=== PATIENT | female | born 1995 | race American Indian/Alaskan Native ===

== ENCOUNTER 2018-01-09 00:43 | Emergency (ER) | payer MEDICAID ==
[2018-01-09 00:52] VITALS: BP 111/69; PULSE 96; TEMP 99; O2SAT 98
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
[2018-01-09 02:07] VITALS: RESP 20
== END 2018-01-09 02:06 | disposition home or self-care (01) ==
LOC: C.ER 00:43
DX: S00.83XA Contusion of other part of head, initial encounter (principal); S39.012A Strain of muscle, fascia and tendon of lower back, initial encounter; Y04.0XXA Assault by unarmed brawl or fight, initial encounter; Y92.89 Other specified places as the place of occurrence of the external cause

== ENCOUNTER 2018-03-10 22:34 | Emergency (ER) | payer MEDICAID ==
[2018-03-10 23:05] VITALS: BP 133/82
[2018-03-10 23:44] VITALS: RESP 18
[2018-03-11 00:29] VITALS: PULSE 101; TEMP 101.4; O2SAT 97
--- NOTE | 2018-03-11 00:41 | C.PDOC ---
History Of Present Illness 22 year old female presents to the ER with a complaint of a fever, sore throat, headache, and body aches, associated with chest congestion and a dry cough. Denies vomiting, diarrhea, sick contact, or recent travel. Time Seen by Provider: 03/10/18 23:11 Chief Complaint (Nursing): Fever History Per: Patient History/Exam Limitations: no limitations Onset/Duration Of Symptoms: Hrs Current Symptoms Are (Timing): Still Present Location Of Pain: None Sick Contacts (Context): None Associated Symptoms: Fever, Sore Throat, Cough, Myalgias, Other (Headache, Chest congestion). denies: Vomiting, Diarrhea Ear Symptoms: Bilateral: None Recent travel outside of the [place]: No Past Medical History Reviewed: Historical Data, Nursing Documentation, Vital Signs Vital Signs: Last Vital Signs Temp 101.4 F H 03/11/18 00:29 Pulse 101 H 03/11/18 00:29 Resp 18 03/11/18 00:29 BP 133/82 03/10/18 23:02 Pulse Ox 97 03/11/18 00:43 - Medical History PMH: Asthma Family History: States: Unknown Family Hx - Social History Hx Tobacco Use: No Hx Alcohol Use: No Hx Substance Use: No - Immunization History Hx Tetanus Toxoid Vaccination: No Hx Influenza Vaccination: No Hx Pneumococcal Vaccination: No Review Of Systems Constitutional: Positive for: Fever ENT: Positive for: Throat Pain Respiratory: Positive for: Cough, Other (Chest congestion). Negative for: Sputum Gastrointestinal: Negative for: Vomiting, Diarrhea Musculoskeletal: Positive for: Other (Body aches) Neurological: Positive for: Headache Physical Exam - Physical Exam Appears: Non-toxic Skin: Normal Color, Warm, Dry Head: Atraumatic, Normacephalic Eye(s): bilateral: Normal Inspection Ear(s): Bilateral: Normal Nose: Normal Oral Mucosa: Moist Throat: Normal, No Erythema, No Exudate Neck: Normal, Supple Chest: Symmetrical, No Tenderness Cardiovascular: Rhythm Regular Respiratory: Normal Breath Sounds, No Rales, No Rhonchi, No Wheezing Neurological/Psych: Oriented x3, Normal Speech ED Course And Treatment O2 Sat by Pulse Oximetry: 97 (Room air) Pulse Ox Interpretation: Normal Progress Note: Tylenol administered for fever. On reevaluation, patient's temperature has improved, she resting comfortably in the ER in no acute distress , tolerating PO, vitals are stable, will discharge home with Rx and instructions to follow up with PMD or return if symptoms worsen. Disposition Counseled Patient/Family Regarding: Diagnosis, Need For Followup - Disposition Referrals: Kiran Hawkins MD [Medical Doctor] - Disposition: HOME/ ROUTINE Disposition Time: 00:39 Condition: STABLE Additional Instructions: Increase PO fluids Bed rest Take meds as directed Return to ER if worse Prescriptions: Benzonatate [Tessalon Perles] 100 mg PO TID #14 sgl Cetirizine HCl [Zyrtec] 10 mg PO DAILY #14 capsule Ibuprofen [Motrin] 600 mg PO Q6H #24 tab Instructions: Viral Upper Respiratory Infection, Adult (DC) Forms: [employer] (Georgian), Work Excuse - Clinical Impression Clinical Impression: Upper respiratory infection - PA / SOLO MUSICIAN / Resident Statement MD/DO has reviewed & agrees with the documentation as recorded. - Scribe Statement The provider has reviewed the documentation as recorded by the Scribe Vikram Rodriguez All medical record entries made by the Scribe were at my direction and personally dictated by me. I have reviewed the chart and agree that the record accurately reflects my personal performance of the history, physical exam, medical decision making, and the department course for this patient. I have also personally directed, reviewed, and agree with the discharge instructions and disposition.
== END 2018-03-11 00:46 | disposition home or self-care (01) ==
LOC: C.ER 22:34
DX: J06.9 Acute upper respiratory infection, unspecified (principal)

== ENCOUNTER 2018-03-11 11:11 | Emergency (ER) | payer MEDICAID ==
[2018-03-11] MEDS ORDERED: Sodium Chloride 0.9% 1,000 ML IV ONE (11:44)
[2018-03-11] MEDS ORDERED: Sodium Chloride 0.9% 1,000 ML ONE (12:19)
--- NOTE | 2018-03-11 12:32 | C.PDOC ---
History Of Present Illness The patient is a 22 year old female who was evaluated in this ED yesterday for upper respiratory infection symptoms. Patient was discharged with prescriptions for Tessalon Perles, Zyrtec, and Motrin. Following her discharge, patient went home and had two episodes of vomiting, which has prompted this ED visit. Patient was noted to have temperature of 102 in the ED. Patient denies fever, chills, abdominal pain. Time Seen by Provider: 03/11/18 11:29 Chief Complaint (Nursing): Abdominal Pain History Per: Patient History/Exam Limitations: no limitations Onset/Duration Of Symptoms: Hrs Current Symptoms Are (Timing): Still Present Associated Symptoms: Vomiting. denies: Fever, Chills Additional History Per: Patient Past Medical History Reviewed: Historical Data, Nursing Documentation, Vital Signs Vital Signs: Last Vital Signs Temp 99.6 F 03/11/18 14:24 Pulse 93 H 03/11/18 14:24 Resp 20 03/11/18 14:24 BP 101/63 03/11/18 14:24 Pulse Ox 99 03/11/18 14:58 - Medical History PMH: Asthma Surgical History: No Surg Hx Family History: States: Unknown Family Hx - Social History Hx Tobacco Use: No Hx Alcohol Use: No Hx Substance Use: No - Immunization History Hx Tetanus Toxoid Vaccination: No Hx Influenza Vaccination: No Hx Pneumococcal Vaccination: No Review Of Systems Constitutional: Negative for: Fever, Chills Gastrointestinal: Positive for: Vomiting. Negative for: Abdominal Pain Physical Exam - Physical Exam Appears: Non-toxic, No Acute Distress Skin: Normal Color, Warm Head: Atraumatic, Normacephalic Oral Mucosa: Moist Neck: Supple Chest: Symmetrical, No Deformity, No Tenderness Cardiovascular: Rhythm Regular, No Murmur Respiratory: Normal Breath Sounds, No Rales, No Rhonchi, No Wheezing Gastrointestinal/Abdominal: Soft, No Tenderness, No Guarding, No Rebound Extremity: Normal ROM, Capillary Refill (less than 2 seconds ) Neurological/Psych: Oriented x3, Normal Speech, Normal Cognition ED Course And Treatment - Laboratory Results Result Diagrams: 03/11/18 12:31 03/11/18 12:31 Lab Interpretation: No Acute Changes O2 Sat by Pulse Oximetry: 99 (on RA) Pulse Ox Interpretation: Normal - Other Rad CXR X-Ray: Interpreted by Me, Viewed By Me Interpretation: HISTORY: Cough. COMPARISON: No prior. TECHNIQUE: Chest PA and lateral. FINDINGS: LUNGS: No active pulmonary disease. PLEURA: No significant pleural effusion identified. No pneumothorax apparent. CARDIOVASCULAR: Normal. OSSEOUS STRUCTURES: No significant abnormalities. VISUALIZED UPPER ABDOMEN: Normal. OTHER FINDINGS: None. IMPRESSION: No active disease. Progress Note: Bloodwork and urinalysis ordered and reviewed. Motrin PO, Zofran IVP, and IV Fluids administered. On re-evaluation feeling better, lungs clear Reassessment Condition: Improved Disposition Counseled Patient/Family Regarding: Studies Performed, Diagnosis, Need For Followup - Disposition Referrals: [email or web address] [Outside] 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 - Scribe Statement The provider has reviewed the documentation as recorded by the Scribe (Latricia Santiago) All medical record entries made by the Scribe were at my direction and personally dictated by me. I have reviewed the chart and agree that the record accurately reflects my personal performance of the history, physical exam, medical decision making, and the department course for this patient. I have also personally directed, reviewed, and agree with the discharge instructions and disposition.
[2018-03-11 12:34] LABS: BASO % 0.2 % (0.0-2.0); EOS % 0.1 % (0.0-4.0); HEMOGLOBIN 12.5 g/dL (11.0-16.0); LYMPH # 1.2 K/uL (1.0-4.3); LYMPH % 7.9 % (20.0-40.0); MEAN CORPUSCULAR HGB CONC 33.3 g/dL (33.0-37.0); MEAN PLATELET VOLUME 7.8 fL (7.2-11.7); MONO # 0.4 K/uL (0.0-0.8); MONO % 2.7 % (0.0-10.0); NEUT % 89.1 % (50.0-75.0); PLATELET COUNT 310 K/uL (130-400); RBC 4.62 Mil/uL (3.80-5.20); RED CELL DISTRIBUTION WIDTH 13.8 % (11.5-14.5); WHITE BLOOD COUNT 15.7 K/uL (4.8-10.8)
[2018-03-11 12:40] LABS: HCG,QUALITATIVE URINE NEGATIVE (NEGATIVE)
[2018-03-11 12:45] LABS: SQUAMOUS EPITHIAL 18 /hpf (0-5); URINE BACTERIA RARE (<OCC); URINE BILIRUBIN NEGATIVE (NEGATIVE); URINE BLOOD NEGATIVE (NEGATIVE); URINE CLARITY Hazy (Clear); URINE COLOR Yellow (YELLOW); URINE GLUCOSE (UA) NORMAL (Normal); URINE LEUKOCYTE ESTERASE 2+ Leu/uL (Negative); URINE PROTEIN NEGATIVE (NEGATIVE); URINE UROBILINOGEN NORMAL mg/dL (0.2-1.0)
[2018-03-11 12:56] LABS: LYMPHOCYTE 11 % (20-40); MONOCYTE 4 % (0-10); NEUTROPHIL 85 % (50-75); PLATELET ESTIMATE NORMAL (NORMAL); TOTAL CELLS COUNTED 100
[2018-03-11 13:00] LABS: ALB/GLOB RATIO 1.1 (1.0-2.1); ALBUMIN 4.2 g/dL (3.5-5.0); ALT/SGPT 25 U/L (9-52); AST/SGOT 24 U/L (14-36); BLOOD UREA NITROGEN 10 mg/dL (7-17); CALCIUM 9.3 mg/dl (8.6-10.4); GFR AFRICAN-AMERICAN > 60; GFR NON-AFRICAN AMERICAN > 60; LIPASE 43 U/L (23-300)
--- NOTE | 2018-03-11 13:47 | RAD ---
HISTORY: Cough COMPARISON: No prior. TECHNIQUE: Chest PA and lateral FINDINGS: LUNGS: No active pulmonary disease. PLEURA: No significant pleural effusion identified. No pneumothorax apparent. CARDIOVASCULAR: Normal. OSSEOUS STRUCTURES: No significant abnormalities. VISUALIZED UPPER ABDOMEN: Normal. OTHER FINDINGS: None. IMPRESSION: No active disease.
[2018-03-11 14:25] VITALS: BP 101/63; PULSE 93; RESP 20; TEMP 99.6
[2018-03-11 14:59] VITALS: O2SAT 99
== END 2018-03-11 14:37 | disposition home or self-care (01) ==
LOC: C.ER 11:11
DX: R11.10 Vomiting, unspecified (principal); J06.9 Acute upper respiratory infection, unspecified; R50.9 Fever, unspecified
CPT/HCPCS: 71046; 80053; 81001; 83690; 84703; 85025; 96361; 96374; 99284; J2405; J7030

== ENCOUNTER 2018-09-26 11:48 | Emergency (ER) | payer MEDICAID ==
[2018-09-26 11:59] VITALS: BMI 31.1
[2018-09-26 12:01] VITALS: TEMP 98.7
--- NOTE | 2018-09-26 12:26 | C.PDOC ---
History Of Present Illness 23 year old female presents to the ED complaining of back contusion starting at 0600. Reports she accidentally slipped and fell backwards onto lower back. Reports taking Tylenol at 0600 with no relief. Notes pain is localized and is worse with movement or sneezing. Denies any LOC or any other associated injuries or symptoms. BACK CONTUSION ONSET @ 0600. PS ACCID SLIPPED AND FELL BACKWARDS ONTO LOWER BACK. SP TYLENOL @ 0600. NO RELIEF. PAIN LOCALIZED WORSE W MOVEMENT, SNEEZING. NO OTHER ASSOC INJ OR SX EXAM NONTOXIC HEENT ATRAUM BACK +B/L LOWER BACK SPASM W LOCAL TEND, NO SPINAL TEND. ATRAUM. LIMTIED ROM SKIN INTACT NEURO INTACT Time Seen by Provider: 09/26/18 12:25 Chief Complaint (Nursing): Back Pain History Per: Patient History/Exam Limitations: no limitations Onset/Duration Of Symptoms: Hrs Current Symptoms Are (Timing): Still Present Quality Of Discomfort: "Pain" Previous Symptoms: None Associated Symptoms: None Exacerbating Factor(s): Movement Past Medical History Reviewed: Historical Data, Nursing Documentation, Vital Signs Vital Signs: Last Vital Signs Temp 98.7 F 09/26/18 12:00 Pulse 78 09/26/18 12:00 Resp 17 09/26/18 12:00 BP 118/56 L 09/26/18 12:00 Pulse Ox 97 09/26/18 12:00 - Medical History PMH: Asthma Other Surgeries: Hx of surgeries Family History: States: No Known Family Hx - Social History Hx Tobacco Use: No Hx Alcohol Use: No Hx Substance Use: No - Immunization History Hx Tetanus Toxoid Vaccination: No Hx Influenza Vaccination: No Hx Pneumococcal Vaccination: No Review Of Systems Except As Marked, All Systems Reviewed And Found Negative. Genitourinary: Negative for: Dysuria, Incontinence, Hematuria Musculoskeletal: Positive for: Back Pain (lower back pain ) Neurological: Negative for: Weakness, Numbness Physical Exam - Physical Exam Appears: Non-toxic, No Acute Distress Skin: Warm, Dry Head: Atraumatic, Normacephalic Eye(s): bilateral: Normal Inspection, PERRL, EOMI Ear(s): Bilateral: Normal Nose: Normal Oral Mucosa: Moist Neck: Supple Chest: Symmetrical Cardiovascular: Rhythm Regular Respiratory: No Rales, No Rhonchi, No Wheezing, Other (NARD) Back: Decreased ROM, Muscle Spasm (bilateral lower back spasm with local tenderness ), No Paraspinal Tenderness, No Straight Leg Raising, No Other (sp inal tenderness ) Extremity: Bilateral: Atraumatic, Normal Color And Temperature Neurological/Psych: Oriented x3, Normal Speech, Normal Motor, Normal Sensation, Normal Reflexes Gait: Steady ED Course And Treatment - Laboratory Results Urine POC: Negative O2 Sat by Pulse Oximetry: 97 (RA) Pulse Ox Interpretation: Normal - Other Rad LS SPINE X-Ray: Interpreted by Me (NEG) Medical Decision Making Medical Decision Making: Plan - Valium 5mg PO - Toradol 60mg IM - POC urine - XR LS spine Patient reports improvement of symptoms. Patient feels comfortable going home and will be discharged. Patient given follow up instructions. Instructed to return to ER if symptoms worsen or new symptoms arise. Disposition Counseled Patient/Family Regarding: Studies Performed, Diagnosis, Need For Followup, Rx Given - Disposition Referrals: [facility] [Outside] [facility] [Outside] Disposition: HOME/ ROUTINE Disposition Time: 13:19 Condition: IMPROVED Prescriptions: diaZEpam [Valium] 5 mg PO TID PRN #15 tab PRN Reason: Muscle Spasm Instructions: Low Back Pain (DC) Forms: [employer] (Ethiopian), Work Excuse - Clinical Impression Clinical Impression: Low back strain - Scribe Statement The provider has reviewed the documentation as recorded by the Scribderek Campa All medical record entries made by the Scribe were at my direction and personally dictated by me. I have reviewed the chart and agree that the record accurately reflects my personal performance of the history, physical exam, medical decision making, and the department course for this patient. I have also personally directed, reviewed, and agree with the discharge instructions and disposition.
[2018-09-26 13:44] VITALS: BP 128/73; PULSE 81; RESP 18
[2018-09-26 14:08] VITALS: O2SAT 97
--- NOTE | 2018-09-26 15:23 | RAD ---
Date of service: 09/26/2018 PROCEDURE: Radiographs of the Lumbar Spine. HISTORY: TRAUMA COMPARISON: No prior. FINDINGS: BONES: Normal alignment. No listhesis. No fracture. DISC SPACES: Unremarkable. OTHER FINDINGS: None. IMPRESSION: No evidence of acute fracture or subluxation.
== END 2018-09-26 13:44 | disposition home or self-care (01) ==
LOC: C.ER 11:48
DX: S39.012A Strain of muscle, fascia and tendon of lower back, initial encounter (principal); W01.0XXA Fall on same level from slipping, tripping and stumbling without subsequent striking against object, initial encounter
CPT/HCPCS: 72100; 96372; 99284; J1885

== ENCOUNTER 2018-12-06 14:43 | Emergency (ER) | payer MEDICAID ==
[2018-12-06 14:43] VITALS: BMI 31.1
[2018-12-06 14:59] VITALS: RESP 20
[2018-12-06 15:24] LABS: BASO % 0.6 % (0.0-2.0); EOS # 0.1 K/uL (0.0-0.7); EOS % 1.9 % (0.0-4.0); HEMOGLOBIN 12.7 g/dL (11.0-16.0); LYMPH # 2.9 K/uL (1.0-4.3); LYMPH % 39.5 % (20.0-40.0); MEAN CELL VOLUME 81.7 fL (81.0-99.0); MEAN CORPUSCULAR HEMOGLOBIN 27.3 pg (27.0-31.0); MEAN CORPUSCULAR HGB CONC 33.4 g/dL (33.0-37.0); MEAN PLATELET VOLUME 7.7 fL (7.2-11.7); MONO # 0.4 K/uL (0.0-0.8); NEUT # 3.8 K/uL (1.8-7.0); NRBC % 0.1 % (0.0-2.0); RBC 4.65 Mil/uL (3.80-5.20); RED CELL DISTRIBUTION WIDTH 13.7 % (11.5-14.5); WHITE BLOOD COUNT 7.2 K/uL (4.8-10.8)
[2018-12-06 15:46] LABS: ALB/GLOB RATIO 1.4 (1.0-2.1); ALBUMIN 4.2 g/dL (3.5-5.0); ALT/SGPT 17 U/L (9-52); AST/SGOT 21 U/L (14-36); BLOOD UREA NITROGEN 9 mg/dL (7-17); CALCIUM 9.1 mg/dl (8.6-10.4); GFR NON-AFRICAN AMERICAN > 60; LIPASE 53 U/L (23-300)
[2018-12-06 15:59] LABS: SQUAMOUS EPITHIAL 6 /hpf (0-5); URINE BACTERIA MOD (<OCC); URINE BILIRUBIN NEGATIVE (NEGATIVE); URINE BLOOD NEGATIVE (NEGATIVE); URINE CLARITY Hazy (Clear); URINE GLUCOSE (UA) 3+ mg/dL (Normal); URINE LEUKOCYTE ESTERASE 3+ Leu/uL (Negative); URINE PROTEIN NEGATIVE (NEGATIVE); URINE UROBILINOGEN NORMAL mg/dL (0.2-1.0)
[2018-12-06 16:00] LABS: URINE COLOR YELLOW (YELLOW)
--- NOTE | 2018-12-06 16:11 | C.PDOC ---
History Of Present Illness 23 year old female presents to ED with complaint of dysuria for 1 week. Patient is also complaining of associated polyuria, polydipsia, and lightheadedness. Patient denies history of previous UTI. Patient is sexually active and in a monogamous relationship. She states her last menstrual period was on 11/01/18. She is not on any medication. She denies fever, chills, nausea, vomiting, diarrhea, abdominal pain, vaginal discharge or bleeding. She denies polyphagia. She denies DM. Chief Complaint (Nursing): Abdominal Pain History Per: Patient History/Exam Limitations: no limitations Onset/Duration Of Symptoms: Days (7) Current Symptoms Are (Timing): Still Present Associated Symptoms: Urinary Symptoms (increased urinary frequency), Other (lightheadedness). denies: Fever, Chills, Nausea, Vomiting, Diarrhea Last Menstral Period: 11/01/18 Past Medical History Reviewed: Historical Data, Nursing Documentation, Vital Signs Vital Signs: Last Vital Signs Temp 99.1 F 12/06/18 14:54 Pulse 98 H 12/06/18 14:54 Resp 20 12/06/18 14:54 BP 148/73 12/06/18 14:54 Pulse Ox 97 12/06/18 14:54 - Medical History PMH: Asthma Surgical History: No Surg Hx Family History: States: Unknown Family Hx - Social History Hx Tobacco Use: No Hx Alcohol Use: No Hx Substance Use: No - Immunization History Hx Tetanus Toxoid Vaccination: No Hx Influenza Vaccination: Yes Hx Pneumococcal Vaccination: No Review Of Systems Constitutional: Negative for: Fever, Chills, Weakness Gastrointestinal: Negative for: Nausea, Vomiting, Abdominal Pain, Diarrhea Genitourinary: Positive for: Dysuria, Frequency. Negative for: Hematuria, Vaginal Discharge, Vaginal Bleeding Musculoskeletal: Negative for: Back Pain Neurological: Negative for: Weakness, Numbness, Dizziness Physical Exam - Physical Exam Appears: Well, Non-toxic, No Acute Distress Skin: Normal Color, Warm, Dry Neck: Normal ROM, Supple Chest: Symmetrical, No Deformity Cardiovascular: Rhythm Regular Respiratory: No Accessory Muscle Use Gastrointestinal/Abdominal: Tenderness (suprapubic region) Back: No CVA Tenderness Extremity: Capillary Refill (<2 seconds) Extremity: Bilateral: Atraumatic, Normal Color And Temperature Pulses: Left Radial: Normal, Right Radial: Normal Neurological/Psych: Oriented x3, Normal Speech, Normal Cognition ED Course And Treatment - Laboratory Results Result Diagrams: 12/06/18 15:20 12/06/18 15:20 Lab Results: Total Bilirubin 0.3 mg/dL (0.2-1.3) 12/06/18 15:20 AST 21 U/L (14-36) 12/06/18 15:20 ALT 17 U/L (9-52) 12/06/18 15:20 Alkaline Phosphatase 95 U/L (38-126) 12/06/18 15:20 Total Protein 7.3 g/dL (6.3-8.3) 12/06/18 15:20 Albumin 4.2 g/dL (3.5-5.0) 12/06/18 15:20 Globulin 3.1 gm/dL (2.2-3.9) 12/06/18 15:20 Albumin/Globulin Ratio 1.4 (1.0-2.1) 12/06/18 15:20 Lipase 53 U/L (23-300) 12/06/18 15:20 Urine Color Yellow (YELLOW) 12/06/18 15:31 Urine Clarity Hazy (Clear) 12/06/18 15:31 Urine pH 6.0 (5.0-8.0) 12/06/18 15:31 Ur Specific Hardin 1.033 (1.003-1.030) H 12/06/18 15:31 Urine Protein Negative mg/dL (NEGATIVE) 12/06/18 15:31 Urine Glucose (UA) 3+ mg/dL (Normal) H 12/06/18 15:31 Urine Ketones Trace mg/dL (NEGATIVE) 12/06/18 15:31 Urine Blood Negative (NEGATIVE) 12/06/18 15:31 Urine Nitrate Negative (NEGATIVE) 12/06/18 15:31 Urine Bilirubin Negative (NEGATIVE) 12/06/18 15:31 Urine Urobilinogen Normal mg/dL (0.2-1.0) 12/06/18 15:31 Ur Leukocyte Esterase 3+ Lauren/uL (Negative) H 12/06/18 15:31 Urine WBC (Auto) 37 /hpf (0-5) H 12/06/18 15:31 Urine RBC (Auto) 23 /hpf (0-3) H 12/06/18 15:31 Ur Squamous Epith Cells 6 /hpf (0-5) H 12/06/18 15:31 Urine Bacteria Mod (<OCC) H 12/06/18 15:31 Urine Yeast (Budding) Occ /hpf (NEGATIVE) H 12/06/18 15:31 O2 Sat by Pulse Oximetry: 97 (RA) Medical Decision Making Medical Decision Making: Plan: Labs and UA ordered Tylenol given UA positive for UTI- will treat with Macrobid and Pyridium Labs revealed elevated Glucose D/W Dr. Hawkins and will treat patient with Metformin now and will continue BID Patient is to see Dr. Hawkins tomorrow in office for further management of DM type 2 Patient verbalized understanding and is in agreement with plan She is stable for discharge Disposition Counseled Patient/Family Regarding: Studies Performed, Diagnosis, Need For Followup, Rx Given - Disposition Referrals: Asiya Hawkins MD [Staff Provider] - Disposition: HOME/ ROUTINE Disposition Time: 16:43 Condition: STABLE Additional Instructions: KATHERINE TIERNEY, thank you for letting us take care of you today. Your provider was Dar Camarillo DO/Lyndsey Martinez PA-C and you were treated for ABD PAIN. The emergency medical care you received today was directed at your acute symptoms. If you were prescribed any medication, please fill it and take as directed. It may take several days for your symptoms to resolve. Return to the Emergency Department if your symptoms worsen, do not improve, or if you have any other problems. Please contact your doctor or call one of the physicians/clinics you have been referred to that are listed on the Patient Visit Information form that is included in your discharge packet. Bring any paperwork you were given at discharge with you along with any medications you are taking to your follow up visit. Our treatment cannot replace ongoing medical care by a primary care provider outside of the emergency department. Thank you for allowing the [facility] team to be part of your care today. Prescriptions: RX: metFORMIN [glucOPHAGE] 500 mg PO BID #30 tab Nitrofurantoin Macrocrystals [Macrobid] 100 mg PO BID #10 cap Phenazopyridine [Pyridium] 200 mg PO TID #6 tab Instructions: Urinary Tract Infection, Adult (DC), Diabetes Diet , Blood Glucose Monitoring, Diabetes Type 2 (DC) Forms: [employer] (Swedish) - Clinical Impression Clinical Impression: Dysuria, UTI (urinary tract infection), Diabetes mellitus, new onset - PA / GREEK PROFESSOR / Resident Statement MD/DO has reviewed & agrees with the documentation as recorded. (Flori Jordan) - Scribe Statement The provider has reviewed the documentation as recorded by the Scribe (Flori Jordan) All medical record entries made by the Scribe were at my direction and personally dictated by me. I have reviewed the chart and agree that the record accurately reflects my personal performance of the history, physical exam, medical decision making, and the department course for this patient. I have also personally directed, reviewed, and agree with the discharge instructions and disposition.
[2018-12-06 18:08] VITALS: BP 110/70; PULSE 84; TEMP 98.7
[2018-12-06 19:45] VITALS: O2SAT 97
== END 2018-12-06 18:08 | disposition home or self-care (01) ==
LOC: C.ER 14:43
DX: N39.0 Urinary tract infection, site not specified (principal); E11.9 Type 2 diabetes mellitus without complications; R30.0 Dysuria